=== PATIENT | female | born 1980 | race Caucasian/White ===

== ENCOUNTER → 2017-12-29 07:35 | Outpatient (CLI) | payer OTHER, SELFPAY ==
--- NOTE | 2017-12-29 07:35 | DT_ITS ---
This patient was seen during an EMR downtime December 27, 2017 - January 03, 2018. This patient may have a combination of paper and electronic documentation or all paper documentation. All documentation is viewable within the e-chart portion of [employer] for each patient visit.
[2018-01-03 04:48] LABS: Hematocrit 43.2 % (37-47); Hemoglobin 14.6 g/dl (12.0-15.0); Mean Corpuscular Volume 85.7 fL (81-99); Red Blood Count 5.04 M/mm3 (4.2-5.4); White Blood Count 5.2 K/mm3 (4.4-11.0)
[2018-01-03 04:49] LABS: Basophil% 0.4 % (0-1); Eosinophils% 3.4 % (0-5); Lymphocyte % 31.7 % (19-41); Mean Corp Hgb Conc 33.8 g/gl (32-36); Mean Platelet Vol. 12.6 fl (6.2-12.0); Monocyte% 7.3 % (0-10); Neutrophil % 57.2 % (47-70); POSITIVE COUNT NO; POSITIVE DIFFERENTIAL NO; POSITIVE MORPHOLOGY NO; Platelet Count 211 K/mm3 (150-450); RBC Distribution Width CV 12.8 % (11.6-14.6); RBC Distribution Width SD 39.5 fl (35.1-43.9)
[2018-01-03 08:26] LABS: BUN 13 mg/dL (7-18); BUN/Creat Ratio 14.4 RATIO (10-20); EST Glomerular Filtration Rate 76 mL/min (>60); Est Glom Filt Rate - Afr Amer 92 mL/min (>60); Glucose 81 mg/dL (74-106); Protein, Total 7.4 g/dL (6.4-8.2)
[2018-01-03 08:27] LABS: AST(SGOT) 31 U/L (15-37); Alanine Aminotransfer ALT/SGPT 38 U/L (13-56); Albumin, Serum 3.7 g/dL (3.2-5.0); Alkaline Phosphatase 100 U/L (45-117); Anion Gap 9 (5-15); Calcium,Total 8.6 mg/dL (8.5-10.1); Chloride 106 mmol/L (98-107); Cholesterol 153 mg/dL (200); Globulin 3.7 g/dL (2.2-4.2); High Density Lipoprotein 49 mg/dL; Sodium Level 140 mmol/L (136-145); Triglycerides 201 mg/dL; Very Low Density Lipoprotein 40 mg/dL (5-40)
[2018-01-03 08:30] LABS: Lymphocyte # 1.66 X10^3/ul (4.0)
[2018-01-03 08:31] LABS: Absolute Lymphocyte Count 1.66 X10^3/ul (0.83-4.51); Basophil# 0.02 X10^3/uL; Eosinophil# 0.18 X10^3/uL; Monocyte# 0.38 X10^3/uL
== END ==
PROVIDERS: Family Provider Family Medicine; PCP Family Medicine; Visit Provider Family Medicine
DX: E78.1 Pure hyperglyceridemia (principal)
CPT/HCPCS: 36415; 80053; 80061; 85025